=== PATIENT | male | born 1960 | race Caucasian/White ===

== ENCOUNTER 2024-12-26 14:48 | Emergency (ER) | payer OTHER, SELFPAY ==
[2024-12-26 15:11] LABS: Hematocrit 43.6 % (39.0-52.0); Hemoglobin 15.4 g/dL (13.0-18.0); Mean Corp Hgb Conc. 35.3 g/dL (33.0-37.0); Mean Corpuscular Volume 91.6 fL (80.0-94.0); Nucleated Red Blood Cells % 0 % (-); Platelet Count 256 10^3/uL (130-400); Red Cell Dist. Width 11.4 % (11.5-14.5)
[2024-12-26 15:29] LABS: ALT (SGPT) 38 U/L (0-50); AST (SGOT) 34 U/L (17-59); Albumin 4.8 g/dl (3.5-5.0); Alkaline Phosphatase 74 U/L (38-126); Blood Urea Nitrogen 19 mg/dl (9-20); Calcium 9.7 mg/dl (8.4-10.2); Carbon Dioxide 34 mmol/L (22-30); Chloride 99 mmol/L (98-107); Glucose 103 mg/dl (70-99); Potassium 4.4 mmol/L (3.5-5.1); Sodium 140 mmol/L (135-145); Total Protein 7.4 g/dl (6.3-8.2); eGFR > 60.00
[2024-12-26 15:30] LABS: Troponin I < 0.012 ng/ml
[2024-12-26 16:20] VITALS: BP 132/82
[2024-12-26 16:21] VITALS: BMI 24.7
[2024-12-26 16:29] VITALS: BP 132/82
[2024-12-26 17:09] VITALS: BP 122/80
[2024-12-26 18:00] VITALS: BP 117/76
--- NOTE | 2024-12-26 18:05 | ED.GENMED ---
History of Present Illness
General
Chief Complaint: Chest Pain
Source: patient
Exam Limitations: none
Time Seen by Provider: 12/26/24 18:03
Nursing documentation reviewed up to this point in time: agreed with
History of Present Illness
History of Present Illness:
64-year-old male with history of HTN, HLD, ADHD, depression, cardiac stent 7 yrs ago presents for intermittent left upper chest pains 'like tight' over the past 7 days not associated with activity. Occurs even at rest. Has felt fatigued. Has had
mild SOB playing pickleball and tennis and going up stairs over past few months and attributes that to aging. Today, he felt 'just a little dizzy' twice when he stood, lasted few seconds. Denies dizziness now. Denies chest pain at this time. No
n/v/d/c. He has appointment with his galley hand in 6 weeks (Dr. Schuler at [facility].
He does workout every other day lifting weights, doing crunches and treadmill.
Past History
Past History
ED Past Medical History: CAD, HTN, Hypercholesterolemia and Psychiatric
ED Past Surgical History: Cardiac and Other
Social History
Tobacco: Non-smoker
Review of Systems
Review of Systems
Allergies reviewed?: Yes
All Other Systems: ROS reviewed and negative except as documented in HPI and ROS
Phy Exam
Physical Exam
Physical Exam:
GENERAL: No acute distress. A&Ox3.
CONSTITUTIONAL: Afebrile.
EYES: clear, conjunctivae normal
ENMT: moist mucus membranes, Pharynx nl
RESPIRATORY: Regular respirations, nonlabored, lungs clear.
CARDIOVASCULAR: Regular rate and rhythm, no murmurs, no rubs.
GI: Soft, nontender, normal BS
MUSCULOSKELETAL: Moves with ease. Well perfused.
SKIN: Warm, dry, pink
PSYCH: Normal mood and affect. Well kept, interactive and appropriate
NEUROLOGIC: Awake, alert and oriented. No focal neurological deficits
Scores
Heart Score for Chest Pain Patients
STEMI patient?: No
History: Slightly or Non-Suspicious
ECG: Normal
Age: >45 - <65 years
Risk Factors: >/= 3 Risk Factors or History of CAD
Troponin: </= Normal Limit
Heart Score for Chest Pain Patients: 3
Heart Score Risk: 2.5% MACE over next 6 weeks
Course
Orders/Labs/Results
Orders:
Orders
12/26/24 14:49
EKG [Electrocardiogram (*1)] Urgent
Reason for Study: Chest Pain
EKG- Treatment ONCE
12/26/24 15:01
Complete Blood Count/With Diff Urgent
Comprehensive Metabolic Panel Urgent
Troponin I Urgent
Abnormal Lab Results
12/26/24
15:01
MCH 32.4 H pg
(27.0-31.0)
RDW 11.4 L %
(11.5-14.5)
Carbon Dioxide 34 H mmol/L
(22-30)
Glucose 103 H mg/dl
(70-99)
12/26/24 15:01
12/26/24 15:01
Vital Signs
Initial and Last Documented VS:
Initial Vital Signs
Temp Pulse Resp Pulse Ox
97.7 F 76 18 100
12/26/24 14:54 12/26/24 14:54 12/26/24 14:54 12/26/24 14:54
Last Documented Vital Signs
Temp Pulse Resp BP Pulse Ox
97.7 F 60 15 117/76 99
12/26/24 14:54 12/26/24 18:30 12/26/24 16:30 12/26/24 18:00 12/26/24 18:30
MDM/Problems Addressed
Differential Diagnosis Includes:
Angina, unstable angina, [place], musculoskeletal pain
MDM/Problems Addressed:
64-year-old male with history of HTN, HLD, ADHD, depression, cardiac stent 7 yrs ago presents for intermittent left upper chest pains 'like tight' over the past 7 days not associated with activity. Occurs even at rest. Has felt fatigued. Has had
mild SOB playing pickleball and tennis and going up stairs over past few months and attributes that to aging. Today, he felt 'just a little dizzy' twice when he stood, lasted few seconds. Denies dizziness now. Denies chest pain at this time. No
n/v/d/c. He has appointment with his galley hand in 6 weeks (Dr. Schuler at [facility].
He does workout every other day lifting weights, doing crunches and treadmill.
CBC, CMP normal
Troponin normal
EKG NSR, rate 76
Patient asymptomatic at this time
He is comfortable going home. He will call his galley hand tomorrow to see if he can move his January appointment up
*Pulse Oximetry
SaO2: 97
Oxygen Mode of Delivery: Room air
Patient hypoxic: no
*EKG
EKG Intrepretation Date: 12/26/24
Interpretation: normal
Heart Rate: 76
Rate: normal
Rhythm: sinus
[place]: normal axis
Interval: normal interval
QRS Pattern: normal QRS
Ischemia: no ischemia
*Critical Care Note
Total Time (30-74mins, 75-104mins- exclusive of procedures): Not Applicable
ED Attending Note
-
Portions of this chart may have been created with voice recognition software.� Occasional wrong word or��sound alike� substitutions may have occurred due to the inherent limitations of voice recognition software.
Discharge Plan
Departure
Patient Disposition: Home (Routine Discharge)
Date of Disposition: 12/26/24
Time of Disposition: 18:26
Patient with high blood pressure during this ER visit?: No
Condition: Good
Discharge Problem:
Atypical chest pain
Instructions: Chest Pain That Is Not Caused by the Heart (DC), Chest pain
Referrals:
Dr. Schuler, Cardiology [Other] - Tomorrow
NONE,* [Family Provider, Internal Medicine]
Activity Restrictions/Additional Instructions:
As we discussed, nothing worrisome in your workup here today, specifically no sign of a heart attack.
Call your galley hand tomorrow and inform of today's visit and see if you need to move your [facility] appointment up
Seek medical care immediately for worsening chest pain
Interventions
Interventions:
*Risk Screen - Suicide Last Done: 12/26/24 14:56
*General Assessment Last Done: 12/26/24 16:28
*Neglect/Abuse Screening Last Done: 12/26/24 16:28
*ED- Fall Risk Assessment Last Done: 12/26/24 16:28
*ED COVID-19 Vaccine History Last Done: 12/26/24 16:28
*ED Influenza Vaccine History Last Done: 12/26/24 16:28
*Nursing Disposition Last Done: 12/26/24 18:43
ED- Cardiac Assessment Last Done: 12/26/24 16:30
Discharge Date and Time
Discharge Date/Time: 12/26/24 18:44
Print Language: BURMESE
== END 2024-12-26 18:44 | disposition home or self-care (01) ==
LOC: EMR 14:48
PROVIDERS: EMERGENCY PHYSICIAN Student in an Organized Health Care Education/Training Program
DX: R07.89 Other chest pain (principal); I25.10 Atherosclerotic heart disease of native coronary artery without angina pectoris; I10 Essential (primary) hypertension; E78.00 Pure hypercholesterolemia, unspecified; F90.9 Attention-deficit hyperactivity disorder, unspecified type; F32.A Depression, unspecified; Z95.5 Presence of coronary angioplasty implant and graft
CPT/HCPCS: 99284; 80053; 84484; 85025; 93005